=== PATIENT | female | born 1990 | race African-American/Black ===

== ENCOUNTER 2023-06-26 07:31 | Emergency (ER) | payer OTHER, MEDICAID ==
[~2023-06-26] VITALS: Ht 162.6 cm; Wt 73.0 kg
[2023-06-26 07:37] VITALS: O2SAT 100
[2023-06-26] MEDS ORDERED: METH-653 MT (08:42)
[2023-06-26] MEDS ORDERED: KETOROLAC 60MG/2ML VIAL IM ONE (08:45)
[2023-06-26 10:00] VITALS: BP 115/78; PULSE 78; RESP 19; TEMP 98.2
== END 2023-06-26 16:33 | disposition home or self-care (01) ==
LOC: ER 08:04
DX: M54.50 Low back pain, unspecified (principal)
CPT/HCPCS: 99283; 96372; J1885

== ENCOUNTER 2023-06-26 17:00 | Emergency (ER) | payer OTHER, MEDICAID ==
[~2023-06-26] VITALS: Ht 165.1 cm; Wt 65.0 kg
[~2023-06-26 17:00] MED LIST: METH-653 MT
[2023-06-26 17:52] VITALS: BP 125/80; PULSE 69; RESP 16; TEMP 98.9; O2SAT 100
== END 2023-06-26 20:27 | disposition left against medical advice (07) ==
LOC: ER 17:00
DX: Z53.21 Procedure and treatment not carried out due to patient leaving prior to being seen by health care provider (principal)
CPT/HCPCS: 81025; 99281